=== PATIENT | female | born 1960 | race Caucasian/White ===

== ENCOUNTER 2016-10-27 06:05 | Emergency (ER) | payer SELFPAY ==
[~2016-10-27] VITALS: Ht 172.7 cm; Wt 86.2 kg
[2016-10-27] MEDS ORDERED: ASPIRIN 325 MG TABLET PO ONE (06:30)
[2016-10-27 06:40] LABS: BASO % 0 % (0-3); EOS % 2 % (0-3); HEMATOCRIT 45.5 % (36.0-47.0); HEMOGLOBIN 15.6 g/dL (12.0-15.5); LYMPH # 3.1 x10^3/uL (1.0-4.8); LYMPH % 36 % (24-48); MEAN CORPUSCULAR HEMOGLOBIN 29 pg (25-35); MEAN CORPUSCULAR HGB CONC 34 g/dL (31-37); MEAN CORPUSCULAR VOLUME 85 fL (79-100); MONO % 7 % (0-9); NEUT % 55 % (31-73); PLATELET COUNT 182 x10^3/uL (140-400); RED BLOOD COUNT 5.37 x10^6/uL (3.50-5.40); RED CELL DISTRIBUTION WIDTH 12.9 % (11.5-14.5); WHITE BLOOD COUNT 8.6 x10^3/uL (4.0-11.0)
--- NOTE | 2016-10-27 06:44 | EKG ---
[facility] [address] [place] [address] Test Date: 2016-10-27 Test Time: 06:09:53 Pat Name: FREDDIE STODDARD Department: Room: Gender: F Financial Assistant: : 1960 Requested By: Artem MURILLO Order Number: [id number] Reading MD: Vy Ingram Measurements Intervals [place] Rate: 81 P: 58 [place]: 166 QRS: 5 QRSD: 86 T: 70 QT: 350 QTc: 407 Interpretive Statements SINUS RHYTHM OLD ANTEROSEPTAL HI LOW LIMB LEAD VOLTAGE T ABNORMALITY IN HIGH LATERAL LEADS ABNORMAL ECG RI6.01 No previous ECG available for comparison Electronically Signed On 10-29-2016 17:16:06 CDT by Vy Ingram
[2016-10-27 06:45] LABS: CALCIUM 9.5 mg/dL (8.5-10.1); CREATININE 0.8 mg/dL (0.6-1.0); GFR 74.2
[2016-10-27 07:06] LABS: PROTHROMBIN TIME PATIENT 12.5 SEC (11.7-14.0)
[2016-10-27 07:26] LABS: BARBITURATES NEG (NEG); BENZODIAZEPINES NEG (NEG); CANNABINOIDS NEG (NEG); COCAINE NEG (NEG); METHADONE NEG (NEG); OPIATES NEG (NEG); PHENCYCLIDINE NEG (NEG)
[2016-10-27 07:28] LABS: ETHANOL, URINE NEG (NEG)
[2016-10-27] MEDS ORDERED: LIDO:MAALOX:DONNATAL 1:1:1 15 ML SINGLE DOSE SWSW ONE (07:45)
[2016-10-27] MEDS ORDERED: MIDAZOLAM PREMIX 100 ML IV ONE (07:45)
[2016-10-27] MEDS ORDERED: ONDANSETRON PF 4 MG/2 ML VIAL. IV ONE (07:45)
[2016-10-27] MEDS ORDERED: FAMOTIDINE 20 MG TABLET. PO ONE (07:45)
[2016-10-27] MEDS ORDERED: MIDAZOLAM HCL/PF 5 MG/5 ML VIAL. IV ONE (07:45)
[2016-10-27] MEDS ORDERED: FAMO20TA5 PO (07:52)
--- NOTE | 2016-10-27 07:52 | PHYS DOC ---
Past Medical History Past Medical History: COPD, Diabetes-Type II Past Surgical History: No Surgical History Alcohol Use: None Drug Use: None Adult General Chief Complaint Chief Complaint: CHEST PAIN-CARDIAC NATURE HPI HPI Patient is a 55 year old female who presents with left upper quadrant and epigastric pain radiating into chest is burning and sharp in nature began yesterday and has gradually worsened through the night and this morning. Associated with nausea. She states this feels ACID reflux. She denies dyspnea, palpitations, diaphoresis, orthopnea, exertional symptoms, leg pain or swelling , cough, hemoptysis, fever or chills, diarrhea, bloody or dark stools, vomiting , dysuria, back pain. Review of Systems Review of Systems Constitutional: Denies fever or chills [] Eyes: Denies change in visual acuity, redness, or eye pain [] HENT: Denies nasal congestion or sore throat [] Respiratory: Denies cough or shortness of breath [] Cardiovascular: No additional information not addressed in HPI [] GI: Denies vomiting, bloody stools or diarrhea [] : Denies dysuria or hematuria [] Musculoskeletal: Denies back pain or joint pain [] Integument: Denies rash or skin lesions [] Neurologic: Denies headache, focal weakness or sensory changes [] Endocrine: Denies polyuria or polydipsia [] Current Medications Current Medications Current Medications Medications (Trade) Dose Ordered Sig/[facility] Start Time Stop Time Status Last Admin Dose Admin Aspirin (Robin Aspirin) 325 mg 1X ONCE 10/27/16 06:30 10/27/16 06:31 DC 10/27/16 06:59 325 MG Famotidine (Pepcid) 20 mg 1X ONCE 10/27/16 07:45 10/27/16 07:46 DC 10/27/16 07:45 20 MG Midazolam HCl (Versed 100mg/ 100ml Premix) 100 ml @ 0 mls/hr 1X ONCE 10/27/16 07:45 10/27/16 07:45 DC Midazolam HCl 5 mg 5 mg 1X ONCE 10/27/16 07:45 10/27/16 07:45 DC Multi-Ingredient Mouthwash/Gargle (Gi Cocktail Single Dose) 15 ml 1X ONCE 10/27/16 07:45 10/27/16 07:46 DC 10/27/16 07:45 15 ML Ondansetron HCl (Zofran Odt) 4 mg 1X ONCE 10/27/16 08:45 10/27/16 08:46 DC Ondansetron HCl (Zofran) 4 mg 1X ONCE 10/27/16 07:45 10/27/16 07:46 DC 10/27/16 07:45 4 MG Allergies Allergies Allergies Coded Allergies Type Severity Reaction Last Updated Verified codeine Allergy Unknown 10/27/16 Yes Physical Exam Physical Exam Constitutional: Well developed, well nourished, no acute distress, non-toxic appearance. [] HENT: Normocephalic, atraumatic, bilateral external ears normal, oropharynx moist, nose normal. [] Eyes: PERRLA, EOMI. [] Neck: Normal range of motion, supple. [] Cardiovascular:Heart rate regular rhythm [] Lungs & Thorax: Bilateral breath sounds clear to auscultation [] Abdomen: Bowel sounds normal, soft, mild epigastric tenderness, no guarding or rebound. [] Skin: Warm, dry, no erythema, no rash. [] Back: No tenderness, no CVA tenderness. [] Extremities: No tenderness, ROM intact, no edema. [] Neurologic: Alert and oriented X 3, normal motor function, normal sensory function, no focal deficits noted. [] Psychologic: Affect normal, judgement normal, mood normal. [] Current Patient Data Vital Signs Vital Signs Date Time Temp Pulse Resp B/P Pulse Ox O2 Delivery O2 Flow Rate FiO2 10/27/16 08:33 87 20 188/92 92 10/27/16 06:12 98.7 Room Air 98.7 Lab Values Laboratory Tests Test 10/27/16 06:20 10/27/16 07:02 White Blood Count 8.6x10^3/uL (4.0-11.0) Red Blood Count 5.37x10^6/uL (3.50-5.40) Hemoglobin 15.6g/dL (12.0-15.5) H Hematocrit 45.5% (36.0-47.0) Mean Corpuscular Volume 85fL (79-100) Mean Corpuscular Hemoglobin 29pg (25-35) Mean Corpuscular Hemoglobin Concent 34g/dL (31-37) Red Cell Distribution Width 12.9% (11.5-14.5) Platelet Count 182x10^3/uL (140-400) Neutrophils (%) (Auto) 55% (31-73) Lymphocytes (%) (Auto) 36% (24-48) Monocytes (%) (Auto) 7% (0-9) Eosinophils (%) (Auto) 2% (0-3) Basophils (%) (Auto) 0% (0-3) Neutrophils # (Auto) 4.7x10^3uL (1.8-7.7) Lymphocytes # (Auto) 3.1x10^3/uL (1.0-4.8) Monocytes # (Auto) 0.6x10^3/uL (0.0-1.1) Eosinophils # (Auto) 0.2x10^3/uL (0.0-0.7) Basophils # (Auto) 0.0x10^3/uL (0.0-0.2) Prothrombin Time 12.5SEC (11.7-14.0) Prothrombin Time INR 1.0 (0.8-1.1) Sodium Level 143mmol/L (136-145) Potassium Level 4.0mmol/L (3.5-5.1) Chloride Level 103mmol/L (98-107) Carbon Dioxide Level 35mmol/L (21-32) H Anion Gap 5 (6-14) L Blood Urea Nitrogen 17mg/dL (7-20) Creatinine 0.8mg/dL (0.6-1.0) Estimated GFR (Cockcroft-Gault) 74.2 Glucose Level 155mg/dL (70-99) H Calcium Level 9.5mg/dL (8.5-10.1) Troponin I Quantitative < 0.017ng/mL (0.000-0.055) RS-Lry-I-Type Natriuretic Peptide 139pg/mL (0-124) H Urine Opiates Screen Neg (NEG) Urine Methadone Screen Neg (NEG) Urine Barbiturates Neg (NEG) Urine Phencyclidine Screen Neg (NEG) Urine Amphetamine/Methamphetamine Neg (NEG) Urine Benzodiazepines Screen Neg (NEG) Urine Cocaine Screen Neg (NEG) Urine Cannabinoids Screen Neg (NEG) Urine Ethyl Alcohol Neg (NEG) Laboratory Tests 10/27/16 06:20 Laboratory Tests 10/27/16 06:20 EKG EKG EKG as interpreted by me as normal sinus rhythm, rate 81, no ST-T changes, normal intervals, no ectopy Radiology/Procedures Radiology/Procedures Chest xray as interpreted by me with no acute cardiopulmonary disease process Course & Med Decision Making Course & Med Decision Making Pertinent Labs and Imaging studies reviewed. (See chart for details) Workup is unremarkable. She is feeling better after medications. Will treat for likely gastritis. Return precautions given. She understands and agrees with plan. Was notified by radiology of left lower lung field lung nodule that appears granulomatous. Notified patient of this prior to discharge and his need for close follow-up with her primary care doctor for further testing. She verbalizes understanding. Dragon Disclaimer Dragon Disclaimer This electronic medical record was generated, in whole or in part, using a voice recognition dictation system. Departure Departure Impression: Primary Impression: Chest pain, atypical Disposition: HOME, SELF-CARE Condition: STABLE Referrals: NO PCP (PCP) Patient Instructions: Gastritis, Adult, [id number] Additional Instructions: Take Pepcid (famotidine) as prescribed for likely gastritis. Take Zofran as needed for nausea. Follow-up with your primary care doctor within one week. Return for any concerns. Scripts Ondansetron (Zofran Odt)4 Mg Tab.rapdis1 Tab SL Q8HRS #10 TAB Prov:Artem MURILLO MD 10/27/16 Famotidine 20 Mg Cojnan53 Mg PO BID #30 TAB Prov:Artem MURILLO MD 10/27/16 Artem MURILLO MD Oct 27, 2016 07:52
--- NOTE | 2016-10-27 08:27 | RAD ---
Indication chest pain. Left-sided. History of COPD. PA and lateral views of the chest were obtained. No prior imaging is available. The heart and pulmonary vessels are unremarkable. An acute parenchymal infiltrate is not seen. Significant pleural fluid is not present and there is no pneumothorax. There is a small density at the left lung base. This likely reflects a granuloma. Comparison with any old films or follow-up imaging establishing stability advised. The findings and recommendations were communicated to Sunitha, a nurse in the emergency room, at 0825 IMPRESSION: No acute finding. Probable granuloma left lung base. See above discussion.
[2016-10-27] MEDS ORDERED: ONDA4TAB10 SL (08:32)
[2016-10-27 08:33] VITALS: BP 188/92
[2016-10-27] MEDS ORDERED: ONDANSETRON ODT 4 MG TAB.RAPDIS. PO ONE (08:45)
== END 2016-10-27 07:55 | disposition home or self-care (01) ==
LOC: ER 06:05
DX: R07.89 Other chest pain (principal); R10.13 Epigastric pain; J44.9 Chronic obstructive pulmonary disease, unspecified; E11.9 Type 2 diabetes mellitus without complications; Z88.5 Allergy status to narcotic agent
CPT/HCPCS: 36415; 71020; 80048; 80305; 80320; 83880; 84484; 85027; 85610; 93005; 96374; 99285; J2405; G0481

== ENCOUNTER → 2020-11-09 | Outpatient (CLI) | payer OTHER ==
[~2020-11-09] MED LIST: FAMO20TA5 PO; ONDA4TAB10 SL
--- NOTE | 2020-11-09 09:57 | RAD ---
EXAM: AP, lateral and lumbosacral spot views of the lumbar spine DATE: 11/09/2020 8:53 AM INDICATION: Reason: LOWER BACK PAIN / Spl. Instructions: / History: COMPARISON: No Prior FINDINGS: 5 nonrib-bearing lumbar-type vertebral bodies. Vertebral body heights are preserved. Moderate L1-2, L 4-5 and L5-S1 disc height loss. Advanced facet degenerative changes are seen. Small posterior disc os teophyte complex these. Vascular calcifications are seen. Large volume colonic stool content in the r ight colon. IMPRESSION: 1. Multilevel spondylosis as above. 2. No acute fracture or subluxation. 3. Large volume colonic stool content in the right colon. Electronically signed by: Israel Esparza MD (11/09/2020 9:54 AM) [id number]
--- NOTE | 2020-11-09 10:00 | RAD ---
EXAM: AP and lateral views right knee DATE: 11/09/2020 9:20 AM INDICATION: Reason: RIGHT KNEE PAIN. / Spl. Instructions: / History: . COMPARISON: No Prior FINDINGS/ IMPRESSION: No evidence of acute fracture or dislocation. Decreased bone mineral density. Patellar enthesopathy. No knee joint effusion. Electronically signed by: Israel Esparza MD (11/09/2020 9:58 AM) [id number]
== END ==
LOC: PF 07:34
PROVIDERS: ATTEND Anesthesiology Pain Medicine
DX: Z02.71 Encounter for disability determination (principal); M47.816 Spondylosis without myelopathy or radiculopathy, lumbar region; M25.78 Osteophyte, vertebrae; M25.561 Pain in right knee; Z87.891 Personal history of nicotine dependence
CPT/HCPCS: 72100; 73560; 94060; 94640; 94729; 94664